=== PATIENT | male | born 1955 | race Caucasian/White ===

== ENCOUNTER 2021-10-06 09:27 | Outpatient (CLI) | payer MEDICARE, SELFPAY ==
--- NOTE | ~2021-10-06 | CT_ITS ---
EXAMINATION: CT lung screening DATE: 10/06/2021 10:10 INDICATION: Personal history of nicotine dependence, prior smoker with 45 pack year history TECHNIQUE: Computed tomography (CT) of the chest was performed without intravenous contrast. The dose -length product (DLP) was 494.10 mGy-cm. 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 COMPARISON: None FINDINGS: There is an 8 mm nodule in the medial aspect of the right lower lobe on image 55. Mild emph ysema is noted. The lungs are free of focal airspace opacities. There is no pleural effusion or pneum othorax. No pathologically enlarged thoracic lymph nodes are identified. The heart size is normal. Mi ld bilateral gynecomastia is noted. There is calcified atherosclerosis versus stenting of the coronar y arteries. 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 IMPRESSION: 1. Lung-RADS category 4A: Findings for which additional diagnostic testing and/or tissue sampling is recommended. Recommend three month low-dose CT or PET/CT. Reviewed, dictated and finalized at location A. [facility] MD IMPRESSION: 1. Lung-RADS category 4A: Findings for which additional diagnostic testing and/ or tissue sampling is recommended. Recommend three month low-dose CT or PET/CT.
== END 2021-10-06 09:28 | disposition home or self-care (01) ==
PROVIDERS: PCP Family Medicine; Visit Provider Family Medicine
DX: Z12.2 Encounter for screening for malignant neoplasm of respiratory organs (principal); Z87.891 Personal history of nicotine dependence; R91.8 Other nonspecific abnormal finding of lung field
CPT/HCPCS: 71271

== ENCOUNTER 2022-01-06 07:45 | Outpatient (CLI) | payer MEDICARE, SELFPAY ==
--- NOTE | ~2022-01-06 | CT_ITS ---
EXAMINATION: CT diagnostic chest wo con DATE: 01/06/2022 08:08 INDICATION: Solitary pulmonary nodule TECHNIQUE: Computed tomography (CT) of the chest was performed without intravenous contrast. The dose -length product (DLP) was 460.65 mGy-cm. Automated exposure control and iterative reconstruction tech [employer] were employed. COMPARISON: 10/06/2021 FINDINGS: There is a stable 8 mm nodule in the medial aspect of the right lower lobe posterior to the right mainstem bronchus on image 55. No new pulmonary nodule is identified. The lungs are free of [place] opacities. There is no pleural effusion or pneumothorax. No pathologically enlarged thoracic lymp h nodes are identified. The heart size is normal. Coronary artery atherosclerosis and stenting are no christine. There is mild emphysema. Bilateral gynecomastia is noted. There is a stable 1.8 cm myelolipoma o f the left adrenal gland. There is moderate thoracic spondylosis. IMPRESSION: 1. Stable 8 mm nodule of the right lower lobe. Based on Lung-RADS recommendations, screening with low -dose chest CT in 12 months is recommended. Reviewed, dictated and finalized at location B. OLOGY SUPERVISOR IMPRESSION: 1. Stable 8 mm nodule of the right lower lobe. Based on Lung-RADS recommendatio ns, screening with low-dose chest CT in 12 months is recommended.
== END 2022-01-06 07:46 | disposition home or self-care (01) ==
LOC: ANHIMG 07:47
PROVIDERS: PCP Family Medicine; Visit Provider Family Medicine
DX: R91.1 Solitary pulmonary nodule (principal)
CPT/HCPCS: 71250

== ENCOUNTER 2022-03-02 07:37 | Outpatient (CLI) | payer MEDICARE, SELFPAY ==
--- NOTE | ~2022-03-02 | US_ITS ---
EXAMINATION: US aorta [facility] DATE: 03/02/2022 08:24 INDICATION: Abdominal aortic aneurysm screening. TECHNIQUE: Grayscale, color Doppler, and pulsed Doppler images of the aorta and common iliac arteries were obtained. COMPARISON: CT abdomen 06/19/2018 FINDINGS: The aorta is normal in caliber and demonstrates atherosclerosis. The right common iliac artery is nor mal in caliber. The left common iliac artery is normal in caliber. IMPRESSION: 1. No abdominal aortic aneurysm. Reviewed, dictated and finalized at location B.
== END 2022-03-02 07:38 | disposition home or self-care (01) ==
LOC: ANHIMG 07:42
PROVIDERS: PCP Family Medicine; Visit Provider Family Medicine
DX: Z13.6 Encounter for screening for cardiovascular disorders (principal); Z87.891 Personal history of nicotine dependence
CPT/HCPCS: 76706

== ENCOUNTER 2022-08-18 09:28 | Outpatient (CLI) | payer MEDICARE, SELFPAY ==
[2022-08-18 20:05] LABS: Basophils Absolute Auto 0.1 K/mm3 (0.0-0.1); Eosinophils Absolute Auto 0.1 K/mm3 (0-0.3); Eosinophils Percent Auto 1.3 % (0-4.4); Hematocrit 42.4 % (42.0-52.0); Hemoglobin 14.2 g/dL (14.0-18.0); Immature Granulocyte Absolute 0.02 K/mm3 (0.00-0.031); Immature Granulocyte Percent A 0.3 % (0-0.5); Lymphocytes Absolute Auto 1.45 K/mm3 (0.9-3.2); Lymphocytes Percent Auto 21.5 % (18.3-44.2); Mean Corpuscular HGB Conc 33.5 g/dl (32-36); Mean Corpuscular Hemoglobin 29.9 pg (26-34); Mean Corpuscular Volume 89.3 fl (80-100); Monocytes Absolute Auto 0.6 K/mm3 (0.1-0.6); Monocytes Percent Auto 8.6 % (2.6-8.5); Neutrophils Absolute Auto 4.5 K/mm3 (1.3-6.7); Neutrophils Percent Auto 67.3 % (45.5-73.1); Platelet Count Result 177 k/mm3 (150-375); Red Blood Count 4.75 M/mm3 (4.6-6.20); Red Cell Distribution Width 13.3 % (11.5-14.5); White Blood Count 6.8 K/mm3 (4.5-10.0)
[2022-08-18 20:33] LABS: Hemoglobin A1C 8.1 % (<5.7)
[2022-08-18 20:50] LABS: Alanine Aminotransferase 52 U/L (6-50); Albumin Level 4.5 g/dL (3.5-5.1); Alkaline Phosphatase 69 U/L (38-126); Anion Gap 12 mmol/L (8-16); Aspartate Amino Transferase 51 U/L (17-59); Bilirubin,Total 0.8 mg/dL (0.2-1.3); Blood Urea Nitrogen 17 mg/dL (9-20); Calcium 9.2 mg/dL (8.4-10.2); Carbon Dioxide 23 mmol/L (22-30); Chloride 102 mmol/L (98-107); Cholesterol 131 mg/dL (0-200); Estimated Glomerular Filt Rate > 60; Glucose 181 mg/dL (65-110); HDL Direct 35 mg/dL; Potassium 4.2 mmol/L (3.4-5.0); Sodium 137 mmol/L (137-145); Triglycerides 178 mg/dL (<150)
[2022-08-18 21:01] LABS: LDL Cholesterol Direct 65 mg/dL
[2022-08-18 21:11] LABS: Creatinine Urine 140.8 mg/dL
[2022-08-18 21:17] LABS: Microalbumin Urine Random 70.4 mg/L (0-16.7)
[2022-08-18 21:19] LABS: Prostate Specific Antigen 2.8 ng/mL (< OR = 4.0); Vitamin D 25 Hydroxy 32.6 ng/mL
== END 2022-08-18 09:29 | disposition home or self-care (01) ==
LOC: ANHGOSHLAB 09:30
PROVIDERS: PCP Family Medicine; Visit Provider Family Medicine
DX: I10 Essential (primary) hypertension (principal); E11.9 Type 2 diabetes mellitus without complications; Z12.5 Encounter for screening for malignant neoplasm of prostate; E55.9 Vitamin D deficiency, unspecified; E78.5 Hyperlipidemia, unspecified; E53.8 Deficiency of other specified B group vitamins
CPT/HCPCS: 36415; 80053; 80061; 82043; 82306; 82607; 83036; 84153; 84443; 85025; G0103

== ENCOUNTER 2023-02-08 10:27 | Outpatient (CLI) | payer MEDICARE, SELFPAY ==
[2023-02-08 19:23] LABS: Alanine Aminotransferase 31 U/L (6-50); Albumin Level 4.6 g/dL (3.5-5.1); Alkaline Phosphatase 60 U/L (38-126); Anion Gap 6 mmol/L (8-16); Aspartate Amino Transferase 32 U/L (17-59); Bilirubin,Total 0.8 mg/dL (0.2-1.3); Blood Urea Nitrogen 19 mg/dL (9-20); Calcium 9.2 mg/dL (8.4-10.2); Carbon Dioxide 29 mmol/L (22-30); Chloride 105 mmol/L (98-107); Estimated Glomerular Filt Rate > 60; Glucose 119 mg/dL (65-110); Potassium 4.2 mmol/L (3.4-5.0); Sodium 140 mmol/L (137-145)
[2023-02-08 19:44] LABS: Hemoglobin A1C 5.9 % (<5.7)
== END 2023-02-08 10:28 | disposition home or self-care (01) ==
LOC: ANHGOSHLAB 10:28
PROVIDERS: PCP Family Medicine; Visit Provider Family Medicine
DX: E11.9 Type 2 diabetes mellitus without complications (principal); I10 Essential (primary) hypertension; I25.10 Atherosclerotic heart disease of native coronary artery without angina pectoris; E78.5 Hyperlipidemia, unspecified
CPT/HCPCS: 36415; 80053; 83036

== ENCOUNTER 2023-08-23 09:42 | Outpatient (CLI) | payer MEDICARE, SELFPAY ==
[2023-08-23 13:44] LABS: Basophils Absolute Auto 0.1 K/mm3 (0.0-0.1); Basophils Percent Auto 0.8 % (0.2-1.2); Eosinophils Absolute Auto 0.1 K/mm3 (0-0.3); Eosinophils Percent Auto 1.8 % (0-4.4); Hematocrit 41.7 % (42.0-52.0); Hemoglobin 13.5 g/dL (14.0-18.0); Immature Granulocyte Absolute 0.03 K/mm3 (0.00-0.031); Immature Granulocyte Percent A 0.5 % (0-0.5); Lymphocytes Absolute Auto 1.63 K/mm3 (0.9-3.2); Lymphocytes Percent Auto 24.9 % (18.3-44.2); Mean Corpuscular HGB Conc 32.4 g/dl (32-36); Mean Corpuscular Hemoglobin 29.9 pg (26-34); Mean Corpuscular Volume 92.5 fl (80-100); Mean Platelet Volume 11.1 fl (7.4-10.4); Monocytes Absolute Auto 0.6 K/mm3 (0.1-0.6); Neutrophils Absolute Auto 4.1 K/mm3 (1.3-6.7); Platelet Count Result 169 k/mm3 (150-375); Red Blood Count 4.51 M/mm3 (4.6-6.20); Red Cell Distribution Width 13.4 % (11.5-14.5); White Blood Count 6.5 K/mm3 (4.5-10.0)
[2023-08-23 14:04] LABS: Alanine Aminotransferase 38 U/L (6-50); Albumin Level 4.5 g/dL (3.5-5.1); Alkaline Phosphatase 64 U/L (38-126); Anion Gap 8 mmol/L (8-16); Aspartate Amino Transferase 44 U/L (17-59); Bilirubin,Total 0.9 mg/dL (0.2-1.3); Blood Urea Nitrogen 21 mg/dL (9-20); Calcium 9.6 mg/dL (8.4-10.2); Carbon Dioxide 27 mmol/L (22-30); Chloride 102 mmol/L (98-107); Cholesterol 121 mg/dL (0-200); Estimated Glomerular Filt Rate > 60; Glucose 171 mg/dL (65-110); HDL Direct 34 mg/dL; Potassium 4.1 mmol/L (3.4-5.0); Sodium 137 mmol/L (137-145); Triglycerides 132 mg/dL (<150)
[2023-08-23 14:17] LABS: LDL Cholesterol Direct 64 mg/dL
[2023-08-23 14:26] LABS: Prostate Specific Antigen 2.7 ng/mL (< OR = 4.0)
[2023-08-23 14:35] LABS: Hemoglobin A1C 7.1 % (<5.7)
[2023-08-23 14:56] LABS: Creatinine Urine 89.5 mg/dL
[2023-08-23 14:59] LABS: Microalbumin Urine Random 54.6 mg/L (0-16.7)
== END 2023-08-23 09:43 | disposition home or self-care (01) ==
LOC: ANHGOSHLAB 09:43
PROVIDERS: PCP Family Medicine; Visit Provider Family Medicine
DX: E78.5 Hyperlipidemia, unspecified (principal); E55.9 Vitamin D deficiency, unspecified; I10 Essential (primary) hypertension; Z12.5 Encounter for screening for malignant neoplasm of prostate; E11.9 Type 2 diabetes mellitus without complications; E53.8 Deficiency of other specified B group vitamins; Z00.00 Encounter for general adult medical examination without abnormal findings
CPT/HCPCS: 36415; 80053; 80061; 82043; 82306; 82607; 83036; 84153; 84443; 85025; G0103

== ENCOUNTER 2023-11-28 11:06 | Outpatient (CLI) | payer MEDICARE, SELFPAY ==
[2023-11-28 14:24] LABS: Alanine Aminotransferase 32 U/L (6-50); Albumin Level 4.6 g/dL (3.5-5.1); Alkaline Phosphatase 70 U/L (38-126); Anion Gap 8 mmol/L (8-16); Aspartate Amino Transferase 51 U/L (17-59); Bilirubin,Total 0.9 mg/dL (0.2-1.3); Blood Urea Nitrogen 25 mg/dL (9-20); Calcium 9.8 mg/dL (8.4-10.2); Carbon Dioxide 26 mmol/L (22-30); Chloride 104 mmol/L (98-107); Estimated Glomerular Filt Rate > 60; Glucose 132 mg/dL (65-110); Potassium 4.5 mmol/L (3.4-5.0); Sodium 138 mmol/L (137-145)
[2023-11-28 16:19] LABS: Hemoglobin A1C 5.9 % (<5.7)
== END 2023-11-28 11:07 | disposition home or self-care (01) ==
PROVIDERS: PCP Family Medicine; Visit Provider Family Medicine
DX: E11.9 Type 2 diabetes mellitus without complications (principal); I10 Essential (primary) hypertension
CPT/HCPCS: 36415; 80053; 83036

== ENCOUNTER 2024-03-28 09:50 | Outpatient (CLI) | payer MEDICARE, SELFPAY ==
[2024-03-28 13:27] LABS: Basophils Absolute Auto 0.1 K/mm3 (0.0-0.1); Basophils Percent Auto 1.1 % (0.2-1.2); Eosinophils Absolute Auto 0.1 K/mm3 (0-0.3); Eosinophils Percent Auto 2.1 % (0-4.4); Hemoglobin 13.1 g/dL (14.0-18.0); Immature Granulocyte Absolute 0.03 K/mm3 (0.00-0.031); Immature Granulocyte Percent A 0.5 % (0-0.5); Lymphocytes Absolute Auto 1.56 K/mm3 (0.9-3.2); Lymphocytes Percent Auto 25.3 % (18.3-44.2); Mean Corpuscular HGB Conc 33.6 g/dl (32-36); Mean Corpuscular Hemoglobin 30.2 pg (26-34); Mean Corpuscular Volume 89.9 fl (80-100); Mean Platelet Volume 11.3 fl (7.4-10.4); Monocytes Absolute Auto 0.6 K/mm3 (0.1-0.6); Monocytes Percent Auto 9.6 % (2.6-8.5); Neutrophils Absolute Auto 3.8 K/mm3 (1.3-6.7); Neutrophils Percent Auto 61.4 % (45.5-73.1); Platelet Count Result 172 k/mm3 (150-375); Red Blood Count 4.34 M/mm3 (4.6-6.20); Red Cell Distribution Width 13.4 % (11.5-14.5); White Blood Count 6.2 K/mm3 (4.5-10.0)
[2024-03-28 13:28] LABS: Alanine Aminotransferase 23 U/L (6-50); Albumin Level 4.2 g/dL (3.5-5.1); Alkaline Phosphatase 61 U/L (38-126); Anion Gap 5 mmol/L (4-12); Aspartate Amino Transferase 33 U/L (17-59); Bilirubin,Total 0.7 mg/dL (0.2-1.3); Blood Urea Nitrogen 19 mg/dL (9-20); Calcium 9.4 mg/dL (8.4-10.2); Carbon Dioxide 28 mmol/L (22-30); Chloride 107 mmol/L (98-107); Cholesterol 94 mg/dL (0-200); Estimated Glomerular Filt Rate > 60; Glucose 111 mg/dL (65-110); HDL Direct 38 mg/dL; Potassium 4.3 mmol/L (3.4-5.0); Sodium 140 mmol/L (137-145); Triglycerides 86 mg/dL (<150)
[2024-03-28 13:39] LABS: LDL Cholesterol Direct 49 mg/dL
[2024-03-28 13:51] LABS: Creatinine Urine 76.4 mg/dL
[2024-03-28 13:52] LABS: Prostate Specific Antigen 3.1 ng/mL (< OR = 4.0)
[2024-03-28 22:01] LABS: Hemoglobin A1C 5.4 % (<5.7)
== END 2024-03-28 09:51 | disposition home or self-care (01) ==
PROVIDERS: PCP Family Medicine; Visit Provider Nurse Practitioner Family
DX: Z12.5 Encounter for screening for malignant neoplasm of prostate (principal); E78.5 Hyperlipidemia, unspecified; E11.9 Type 2 diabetes mellitus without complications; E53.8 Deficiency of other specified B group vitamins; E55.9 Vitamin D deficiency, unspecified; I10 Essential (primary) hypertension; Z13.29 Encounter for screening for other suspected endocrine disorder
CPT/HCPCS: 36415; 80053; 80061; 82043; 83036; 84153; 84443; 85025; G0103

== ENCOUNTER 2024-09-05 10:11 | Outpatient (CLI) | payer MEDICARE, SELFPAY ==
[2024-09-05 19:04] LABS: Basophils Absolute Auto 0.1 K/mm3 (0.0-0.1); Basophils Percent Auto 0.9 % (0.2-1.2); Eosinophils Absolute Auto 0.1 K/mm3 (0-0.3); Eosinophils Percent Auto 1.7 % (0-4.4); Hematocrit 39.8 % (42.0-52.0); Hemoglobin 13.4 g/dL (14.0-18.0); Immature Granulocyte Absolute 0.03 K/mm3 (0.00-0.031); Immature Granulocyte Percent A 0.4 % (0-0.5); Lymphocytes Absolute Auto 1.59 K/mm3 (0.9-3.2); Lymphocytes Percent Auto 22.7 % (18.3-44.2); Mean Corpuscular HGB Conc 33.7 g/dl (32-36); Mean Corpuscular Hemoglobin 30.8 pg (26-34); Mean Corpuscular Volume 91.5 fl (80-100); Mean Platelet Volume 11.1 fl (7.4-10.4); Monocytes Absolute Auto 0.7 K/mm3 (0.1-0.6); Monocytes Percent Auto 10.3 % (2.6-8.5); Neutrophils Absolute Auto 4.5 K/mm3 (1.3-6.7); Platelet Count Result 174 k/mm3 (150-375); Red Blood Count 4.35 M/mm3 (4.6-6.20); Red Cell Distribution Width 13.5 % (11.5-14.5)
[2024-09-05 19:13] LABS: Alanine Aminotransferase 25 U/L (6-50); Albumin Level 4.4 g/dL (3.5-5.1); Alkaline Phosphatase 58 U/L (38-126); Anion Gap 10 mmol/L (4-12); Aspartate Amino Transferase 50 U/L (17-59); Bilirubin,Total 0.7 mg/dL (0.2-1.3); Blood Urea Nitrogen 16 mg/dL (9-20); Calcium 9.6 mg/dL (8.4-10.2); Carbon Dioxide 29 mmol/L (22-30); Chloride 102 mmol/L (98-107); Cholesterol 127 mg/dL (0-200); Estimated Glomerular Filt Rate > 60; Glucose 129 mg/dL (65-110); HDL Direct 40 mg/dL; Sodium 141 mmol/L (137-145); Triglycerides 148 mg/dL (<150)
[2024-09-05 19:23] LABS: Creatinine Urine 69.8 mg/dL
[2024-09-05 19:25] LABS: LDL Cholesterol Direct 55 mg/dL
[2024-09-05 19:27] LABS: MALB Creatinine Ratio 87.7 mg/g (0-30); Microalbumin Urine Random 61.2 mg/L (0-16.7)
[2024-09-05 19:41] LABS: Prostate Specific Antigen 3.1 ng/mL (< OR = 4.0)
[2024-09-05 20:16] LABS: Folic Acid 15.2 ng/mL (2.76->20)
[2024-09-05 20:23] LABS: Iron 63 ug/dL (49-181)
[2024-09-05 20:32] LABS: Hemoglobin A1C 6.7 % (<5.7)
[2024-09-05 20:55] LABS: Vitamin D 25 Hydroxy 52.5 ng/mL
[2024-09-05 21:44] LABS: Percent Iron Saturation 18 % (20-50)
== END 2024-09-05 10:12 | disposition home or self-care (01) ==
LOC: ANHGOSHLAB 10:12
PROVIDERS: PCP Family Medicine; Visit Provider Family Medicine
DX: D64.9 Anemia, unspecified (principal); I10 Essential (primary) hypertension; E11.9 Type 2 diabetes mellitus without complications; Z12.5 Encounter for screening for malignant neoplasm of prostate; I25.10 Atherosclerotic heart disease of native coronary artery without angina pectoris; E55.9 Vitamin D deficiency, unspecified; E78.5 Hyperlipidemia, unspecified
CPT/HCPCS: 36415; 80053; 80061; 82043; 82306; 82607; 82728; 82746; 83036; 83540; 83550; 84153; 84443; 85025; G0103

== ENCOUNTER 2025-03-14 08:45 | Outpatient (CLI) | payer MEDICARE, SELFPAY ==
--- OUTSIDE RECORDS SUMMARY | 2025-03-14 08:54 | XMS_ITS | Referral Summary ---
Author Organization [facility] [address] [facility] [address] [place] [address] Care Team Providers Care Athletic Shoe Designer Name Role Phone Mariposa Hill MD Primary Care Provider Encounters Date Type Department Care Team Description 12/23/2024 1:15 PM MORTGAGE LOAN UNDERWRITER Office Visit [facility] Cardiology [address] [facility] [address] [place] [address] Sebastian Mckinnon MD Coronary artery disease involving [place] coronary artery of [place] heart without angina pectoris (Primary Dx); History of coronary artery stent placement from Last 3 Months Allergies No known active allergies Medications atorvastatin (LIPITOR) 40 mg tablet TK 1 T PO QHS 0 Active glipiZIDE (GLUCOTROL) 5 mg tablet 1 tablet (5 mg total) 0 Active metoprolol XL (TOPROL-XL) 200 mg extended release tablet TK 1 T PO D 0 Active metFORMIN XR (GLUCOPHAGE XR) 500 mg 24 hr tablet TAKE 2 TS PO BID WITH A MEAL 0 Active quinapriL-hydro chlorothiazide (ACCURETIC) 20-25 mg per tablet TK 1 T PO D 0 Active lisinopril-hydr oCHLOROthiazide (ZESTORETIC) 20-25 mg per tablet Take 1 tablet by mouth daily 3 Active amLODIPine (NORVASC) 10 mg tablet Take 1 tablet (10 mg total) by mouth daily 2 Active amLODIPine (NORVASC) 5 mg tablet Take 5 mg by mouth daily 2 Active aspirin 81 mg enteric coated tablet Take 1 tablet (81 mg total) by mouth daily 30 tablet 11 3 Active Mounjaro 5 mg/0.5 mL pen injector ADMINISTER 5 MG UNDER THE SKIN WEEKLY 4 Active losartan-hydroc hlorothiazide (HYZAAR) 100-25 mg per tablet Take 1 tablet by mouth daily 4 Active cyanocobalamin (Vitamin B-12) 1,000 mcg tabletIndicatio ns:Prevention of Vitamin B12 Deficiency Take 1 tablet (1,000 mcg total) by mouth daily Active Active Problems Problem Noted Date Diagnosed Date Coronary artery disease invo lving [place] coronary artery of [place] heart without angina pectoris 08/04/2020 History of coronary artery stent placement 08/04 Social History Tobacco Use Types Packs/Day Years Used Date Smoking Tobacco: Former Cigarettes Q uit: 10/30/2008 Tobacco Cessation:Counseling Given: Not Answered Alcohol Use Standard Drinks/Week Comments Yes 0 (1 standard drink = 0.6 oz pur e alcohol) Sex and Gender Information Value Date Recorded Sex Assigned at Not on file Legal Sex Male 1:57 AM MORTGAGE LOAN UNDERWRITER Gender Identity Not on file Sexual Orientation Not on file Last Filed Vital Signs Vital Sign Reading Time Taken Comments Blood Pressure 150/82 12/23/2024 1:04 PM MORTGAGE LOAN UNDERWRITER Pulse 69 12/23/2024 1:04 PM MORTGAGE LOAN UNDERWRITER Temperature - - Respiratory Rate - - Oxygen Saturation 96% 12/23/2024 1:04 PM MORTGAGE LOAN UNDERWRITER Inhaled Oxygen Concentration - - Weight 127 kg (280 lb) 12/23/2024 1:04 PM MORTGAGE LOAN UNDERWRITER Height 185.4 cm (6' 1 ) 12/23/2024 1:04 PM MORTGAGE LOAN UNDERWRITER Body Mass Index 36.94 12/23/2024 1:04 PM MORTGAGE LOAN UNDERWRITER Plan of Treatment Not on file Procedures Procedure Name Priority Date/Time Associated Diagnosis Comments POCT LIPID PANEL Routine 12/23/2024 4:01 PM MORTGAGE LOAN UNDERWRITER Coronary artery disease involving [place] coronary artery of [place] heart without angina pectoris from Last 3 Months Results * POCT lipid panel (12/23/2024 4:01 PM MORTGAGE LOAN UNDERWRITER) Cholesterol, POC 135 mg/dL Comment:GLU = 147 HDL, POC 23 mg/dL Triglycerides, POC 239 mg/dL LDL Cholesterol POC 64 mg/dL Chol/HDL Ratio, POC 2.7 Non-HDL Cholesterol, POC 111 mg/dL Cholesterol Total, POC 135 mg/dL Capillary blood 12/23/2024 4 :01 PM MORTGAGE LOAN UNDERWRITER us Sebastian Mckinnon MD POINT OF CARE TEST ORDER TOMMY Final Result from Last 3 Months Insurance MEDICARE ADVANTAGE [facility] MEDICARE ADVANTAGE Care Teams Athletic Shoe Designer Relationship Specialty Start Date End Date Mariposa Hill MD PCP - General Family Practice 08/04/20
--- OUTSIDE RECORDS SUMMARY | 2025-03-14 08:54 | XMS_ITS | Clinical Summary ---
Author Organization [facility] [address] Address [address] [place] [address] Care Team Providers Care Bowling Ball Engraver Name Role Phone Mariposa Hill MD Primary Care Provider Allergies No known active allergies Medications atorvastatin [...] Diagnosed Date Coronary artery disease invo lving [place] coronary artery of [place] heart without angina pectoris 08/04/2020 History of coronary artery stent placement 08/04 Encounters Date Type Department Care Team Description 12/23/2024 1:15 PM BAG CUTTER Office Visit [facility] Cardiology [address] [place] [address] Sebastian Mckinnon MD Coronary artery disease involving [place] coronary artery of [place] heart without angina pectoris (Primary Dx); History of coronary artery stent placement from Last 3 Months Surgical History Surgery Date Site/Laterality Comments KIDNEY STONE SURGERY 10/30/2017 - 10/29/2018 Medical History Medical History Date Comments Hypertension Hypertension Adiposity Obesity Diabetes mellitus (HCC) Hyperlipidemia Coronary artery disease Family History Medical History Relation Name Comments No Known Problems Father No Known Problems Mother Relation Name Status Comments Father Mother Social History Tobacco Use Types Packs/Day Years Used Date Smoking Tobacco: Former Cigarettes Q uit: 10/30/2008 Tobacco Cessation:Counseling Given: Not Answered Alcohol Use Standard Drinks/Week Comments Yes 0 (1 standard drink = 0.6 oz pur e alcohol) Sex and Gender Information Value Date Recorded Sex Assigned at Not on file Legal Sex Male 1:57 AM BAG CUTTER Gender Identity Not on file Sexual Orientation Not on file Obstetrics History Last Filed Vital Signs Vital Sign Reading Time Taken Comments Blood Pressure 150/82 12/23/2024 1:04 PM BAG CUTTER Pulse 69 12/23/2024 1:04 PM BAG CUTTER Temperature - - Respiratory Rate - - Oxygen Saturation 96% 12/23/2024 1:04 PM BAG CUTTER Inhaled Oxygen Concentration - - Weight 127 kg (280 lb) 12/23/2024 1:04 PM BAG CUTTER Height 185.4 cm (6' 1 ) 12/23/2024 1:04 PM BAG CUTTER Body Mass Index 36.94 12/23/2024 1:04 PM BAG CUTTER Plan of Treatment Health Maintenance Due Date Last Done Comments Colon Cancer Screening-Colonoscopy 1955 Depression Screening 1955 Fall Risk Assessment 1955 Hepatitis C Screening 1955 Prostate Cancer Screening-PSA 1955 Hepatitis B Screening 1973 Pneumococcal vaccine 65+ (1 of 1 - PCV) 2005 Zoster Vaccine (1 of 2) 2005 Abdominal Aortic Aneurysm (A AA) Screen 2020 Well Visit 65+ 2020 Influenza Vaccine (#1) 2024 0, 08/27/2019, 09/04/2018 DTaP/Tdap/Td Vaccine (2 - Td or Tdap) 03/23/2027 Procedures Procedure Name Priority Date/Time Associated Diagnosis Comments POCT LIPID PANEL Routine 12/23/2024 4:01 PM BAG CUTTER Coronary artery disease involving [place] coronary artery of [place] heart without angina pectoris from Last 3 Months Results * POCT lipid panel (12/23/2024 4:01 PM BAG CUTTER) Cholesterol, POC 135 mg/dL Comment:GLU = 147 HDL, POC 23 mg/dL Triglycerides, POC 239 mg/dL LDL Cholesterol POC 64 mg/dL Chol/HDL Ratio, POC 2.7 Non-HDL Cholesterol, POC 111 mg/dL Cholesterol Total, POC 135 mg/dL Capillary blood 12/23/2024 4 :01 PM BAG CUTTER Sebastian Mckinnon MD POINT OF CARE TEST ORDER TOMMY Final Result from Last 3 Months Insurance [facility] MEDICARE ADVANTAGE [facility] Address: [address] [place] [address] [facility] MEDICARE ADVANTAGE [facility] Address: [facility] [address] [place] [address] Care Teams Bowling Ball Engraver Relationship Specialty Start Date End Date Mariposa Hill MD PCP - General Family Practice 08/04/20
[2025-03-14 12:23] LABS: Basophils Absolute Auto 0.1 K/mm3 (0.0-0.1); Eosinophils Absolute Auto 0.1 K/mm3 (0-0.3); Eosinophils Percent Auto 1.8 % (0-4.4); Hematocrit 40.2 % (42.0-52.0); Hemoglobin 13.2 g/dL (14.0-18.0); Immature Granulocyte Absolute 0.04 K/mm3 (0.00-0.031); Immature Granulocyte Percent A 0.5 % (0-0.5); Lymphocytes Absolute Auto 1.82 K/mm3 (0.9-3.2); Lymphocytes Percent Auto 22.9 % (18.3-44.2); Mean Corpuscular HGB Conc 32.8 g/dl (32-36); Mean Corpuscular Hemoglobin 29.7 pg (26-34); Mean Corpuscular Volume 90.3 fl (80-100); Mean Platelet Volume 10.8 fl (7.4-10.4); Monocytes Absolute Auto 0.6 K/mm3 (0.1-0.6); Monocytes Percent Auto 7.7 % (2.6-8.5); Neutrophils Absolute Auto 5.3 K/mm3 (1.3-6.7); Neutrophils Percent Auto 66.1 % (45.5-73.1); Platelet Count Result 228 k/mm3 (150-375); Red Blood Count 4.45 M/mm3 (4.6-6.20); Red Cell Distribution Width 13.2 % (11.5-14.5); White Blood Count 7.9 K/mm3 (4.5-10.0)
[2025-03-14 12:27] LABS: Alanine Aminotransferase 47 U/L (6-50); Albumin Level 4.4 g/dL (3.5-5.1); Alkaline Phosphatase 68 U/L (38-126); Anion Gap 12 mmol/L (4-12); Aspartate Amino Transferase 55 U/L (17-59); Bilirubin,Total 0.6 mg/dL (0.2-1.3); Blood Urea Nitrogen 25 mg/dL (9-20); Calcium 9.4 mg/dL (8.4-10.2); Carbon Dioxide 25 mmol/L (22-30); Chloride 105 mmol/L (98-107); Estimated Glomerular Filt Rate > 60; Glucose 173 mg/dL (65-110); Potassium 4.1 mmol/L (3.4-5.0); Sodium 142 mmol/L (137-145)
[2025-03-14 13:04] LABS: Creatinine Urine 135.6 mg/dL
[2025-03-14 13:09] LABS: MALB Creatinine Ratio 29.6 mg/g (0-30); Microalbumin Urine Random 40.2 mg/L (0-16.7)
[2025-03-14 13:49] LABS: Hemoglobin A1C 7.8 % (<5.7)
== END 2025-03-14 08:46 | disposition home or self-care (01) ==
LOC: ANHGOSHLAB 08:45
PROVIDERS: PCP Family Medicine; Visit Provider Family Medicine
DX: I10 Essential (primary) hypertension (principal); Z00.00 Encounter for general adult medical examination without abnormal findings; E11.9 Type 2 diabetes mellitus without complications
CPT/HCPCS: 36415; 80053; 82043; 83036; 85025

== ENCOUNTER 2025-09-08 10:36 | Outpatient (CLI) | payer MEDICARE, SELFPAY ==
--- NOTE | ~2025-09-08 | XR_ITS ---
EXAMINATION: [id number], 09/08/2025 10:50 SPACE AND MISSILE OPERATIONS HISTORY: Pain in right knee x 2 months COMPARISON: No comparisons available. Findings: No acute fracture or malalignment. No significant degenerative changes. Soft tissues unremarkable. Impression: No acute fracture or malalignment. Reviewed, dictated and finalized at location P. E AND MISSILE OPERATIONS Impression: No acute fracture or malalignment.
--- NOTE | ~2025-09-08 | XR_ITS ---
EXAMINATION: XR knee LT 3V, 09/08/2025 10:50 SENIOR LOGISTICS MANAGER HISTORY: Pain in left knee x 2 months COMPARISON: No comparisons available. Findings: No acute fracture or malalignment. No significant degenerative changes. Soft tissues unremarkable. Impression: No acute fracture or malalignment. Reviewed, dictated and finalized at location P. OR LOGISTICS MANAGER Impression: No acute fracture or malalignment.
== END 2025-09-08 10:37 | disposition home or self-care (01) ==
LOC: GOSHIMG 10:36
PROVIDERS: PCP Family Medicine; Visit Provider Nurse Practitioner Family
DX: M25.561 Pain in right knee (principal); M25.562 Pain in left knee
CPT/HCPCS: 73560; 73562

== ENCOUNTER 2025-10-20 11:20 | Outpatient (CLI) | payer MEDICARE, SELFPAY ==
--- OUTSIDE RECORDS SUMMARY | 2025-10-20 13:14 | XMS_ITS | Clinical Summary ---
Author Organization [facility] [address] [place] [address] Care Team Providers Care Mechanical Engineering Officer Name Role Phone Mariposa Hill MD Primary [...] Diagnosed Date Coronary artery disease invo lving [place] coronary artery of [place] heart without angina pectoris 08/04/2020 History of coronary artery stent placement 08/04 Surgical History Surgery Date Site/Laterality Comments KIDNEY STONE SURGERY 10/30/2017 - 10/29/2018 Medical History Medical History Date Comments Hypertension Hypertension Adiposity Obesity Diabetes mellitus Hyperlipidemia Coronary artery disease Family History Medical [...] on file Legal Sex Male 1:57 AM INFORMATION ASSURANCE ANALYST Gender Identity Not on file Sexual Orientation Not on file Last Filed Vital Signs Vital Sign Reading Time Taken Comments Blood Pressure 150/82 12/23/2024 1:04 PM INFORMATION ASSURANCE ANALYST Pulse 69 12/23/2024 1:04 PM INFORMATION ASSURANCE ANALYST Temperature - - Respiratory Rate - - Oxygen Saturation 96% 12/23/2024 1:04 PM INFORMATION ASSURANCE ANALYST Inhaled Oxygen Concentration - - Weight 127 kg (280 lb) 12/23/2024 1:04 PM INFORMATION ASSURANCE ANALYST Height 185.4 cm (6' 1) 12/23/2024 1:04 PM INFORMATION ASSURANCE ANALYST Body Mass Index 36.94 12/23/2024 1:04 PM INFORMATION ASSURANCE ANALYST Plan of Treatment Health Maintenance Due Date Last Done Comments Colon Cancer Screening-Colonoscopy 1955 Depression Screening 1955 Fall Risk Assessment 1955 Hepatitis C Screening 1955 Hepatitis B Screening 1973 Pneumococcal vaccine 65+ (1 of 1 - PCV) 2005 Zoster Vaccine (1 of 2) 2005 Abdominal Aortic Aneurysm (A AA) Screen 2020 Well Visit 65+ 2020 Influenza Vaccine (#1) 2025 0, 08/27/2019, 09/04/2018 DTaP/Tdap/Td Vaccine (2 - Td or Tdap) 03/23/2027 Insurance [facility] Address: [id number] [place] [address] MEDICARE ADVANTAGE [facility] Address: [id number] [place] [address] Care Teams Mechanical Engineering Officer Relationship Specialty Start Date End Date Mariposa Hill MD PCP - General Family Practice 08/04/20
[2025-10-20 13:57] LABS: Hematocrit 40.5 % (42.0-52.0); Hemoglobin 13.1 g/dL (14.0-18.0); Immature Granulocyte Percent A 0.3 % (0-0.5); Lymphocytes Absolute Auto 1.73 K/mm3 (0.9-3.2); Mean Corpuscular HGB Conc 32.3 g/dl (32-36); Mean Corpuscular Hemoglobin 29.4 pg (26-34); Mean Corpuscular Volume 91.0 fl (80-100); Nucleated Red Blood Cells Absolute Auto 0.000 K/mm3 (0.0-0.012); Nucleated Red Blood Cells Perc 0.0 % (0.0-0.2); Platelet Count Result 186 k/mm3 (150-375); Red Blood Count 4.45 M/mm3 (4.6-6.20); White Blood Count 7.7 K/mm3 (4.5-10.0)
[2025-10-20 14:09] LABS: Iron 75 ug/dL (49-181)
[2025-10-20 14:14] LABS: Hemoglobin A1C 7.9 % (<5.7)
[2025-10-20 14:17] LABS: Percent Iron Saturation 22 % (20-50)
[2025-10-20 14:22] LABS: Alanine Aminotransferase 55 U/L (6-50); Albumin Level 4.7 g/dL (3.5-5.1); Alkaline Phosphatase 65 U/L (38-126); Anion Gap 10 mmol/L (4-12); Aspartate Amino Transferase 62 U/L (17-59); Bilirubin,Total 0.7 mg/dL (0.2-1.3); Blood Urea Nitrogen 22 mg/dL (9-20); Calcium 9.8 mg/dL (8.4-10.2); Carbon Dioxide 27 mmol/L (22-30); Chloride 103 mmol/L (98-107); Cholesterol 137 mg/dL (0-200); Estimated Glomerular Filt Rate > 60; Glucose 182 mg/dL (65-110); HDL Direct 39 mg/dL; Potassium 4.3 mmol/L (3.4-5.0); Sodium 140 mmol/L (137-145); Total Protein 8.2 g/dL (6.3-8.2); Triglycerides 187 mg/dL (<150)
[2025-10-20 14:25] LABS: MALB Creatinine Ratio 38.7 mg/g (0-30)
[2025-10-20 14:46] LABS: Thyroid Stimulating Hormone Reflex 2.110 uIU/mL (0.465-4.68)
[2025-10-20 14:56] LABS: Ferritin 247.00 ng/mL (11.1-264)
[2025-10-20 15:04] LABS: Prostate Specific Antigen 3.2 ng/mL (< OR = 4.0)
[2025-10-20 15:39] LABS: Vitamin B12 874.0 pg/mL (239-931)
== END 2025-10-20 11:21 | disposition home or self-care (01) ==
PROVIDERS: PCP Family Medicine; Visit Provider Family Medicine
DX: D64.9 Anemia, unspecified (principal); E78.5 Hyperlipidemia, unspecified; E11.9 Type 2 diabetes mellitus without complications; E55.9 Vitamin D deficiency, unspecified; I10 Essential (primary) hypertension; Z12.5 Encounter for screening for malignant neoplasm of prostate
CPT/HCPCS: 36415; 80053; 80061; 82043; 82306; 82607; 82728; 82746; 83036; 83540; 83550; 84153; 84443; 85025; G0103